=== PATIENT | female | born 1960 | race American Indian/Alaskan Native ===

== ENCOUNTER 2017-07-26 11:56 | Day surgery (SDC) | payer MEDICAID ==
[2017-07-24 10:18] VITALS: BMI 31.6
[2017-07-26 12:32] LABS: BASO # 0.01 K/mm3 (0.0-2.0); BASO % 0.2 % (0.0-3.0); EOS # 0.1 (0.0-0.7); EOS % 1.2 % (1.5-5.0); GRAN # 3.34 (1.4-6.5); GRAN % 55.6 % (50.0-68.0); HEMATOCRIT 33.3 % (36.0-48.0); MEAN CELL VOLUME 88.3 fl (80.0-105.0); MEAN CORPUSCULAR HEMOGLOBIN 27.9 pg (25.0-35.0); MEAN CORPUSCULAR HGB CONC 31.5 g/dl (31.0-37.0); MEAN PLATELET VOLUME 9.6 fl (7.0-11.0); MONO # 0.5 (0.1-0.6); RED CELL DISTRIBUTION WIDTH 21.1 % (11.5-14.5)
[2017-07-26 12:41] LABS: BLOOD UREA NITROGEN 13 mg/dL (7-21); CALCIUM 9.7 mg/dL (8.4-10.5); CARBON DIOXIDE 26 mmol/L (21-33); CHLORIDE 105 mmol/L (98-107); GFR AFRICAN-AMERICAN > 60; GLUCOSE,RANDOM 93 mg/dL (70-110); POTASSIUM 4.2 mmol/L (3.6-5.0); SODIUM 142 mmol/L (132-148)
[2017-07-26 12:45] LABS: INR 1.08 (0.93-1.08); PARTIAL THROMBOPLASTIN TIME 28.7 Seconds (23.7-30.8)
[2017-07-26] MEDS ORDERED: Midazolam 2 MG/2 ML VIAL ONE (14:55)
[2017-07-26] MEDS ORDERED: Oxycodone/Acetaminophen 5/325 mg Tab PO PRN (16:17)
[2017-07-26] MEDS ORDERED: Sodium Chloride 0.45% 1,000 ML IV SCH (16:30)
[2017-07-26] MEDS ORDERED: Oxycodone/Acetaminophen 5/325 mg Tab ONE (16:38)
[2017-07-26 18:22] VITALS: RESP 20; TEMP 97.7; O2SAT 98
[2017-07-26 18:25] VITALS: BP 113/71; PULSE 88
--- NOTE | 2017-07-26 19:27 | CT ---
PROCEDURE: CT guided bone marrow aspiration and biopsy HISTORY: Monoclonal gammopathy. Evaluate for multiple myeloma. PHYSICIAN(S): Sixto Hartman MD. TECHNIQUE: The relative risks and indications of the procedure were explained to the patient and consent obtained. The patient was placed prone on the CT scanner and preliminary images through the [facility] obtained. Conscious sedation and monitoring were provided throughout the procedure by a nurse. The left posterior superior iliac spine was selected for biopsy. The skin was prepped and draped usual sterile fashion. 1 percent xylocaine was used to anesthetize the skin soft tissues. And on control ome biopsy needle was advanced to the left posterior superior iliac spine and its position confirmed with CT. The needle was advanced through the cortex. Bone marrow aspiration was performed. Next a core biopsy was obtained with on control needle and drill. An excellent specimen was obtained. IMPRESSION: 1. CT-guided bone marrow aspiration and biopsy as described above.
== END 2017-07-26 18:30 | disposition home or self-care (01) ==
LOC: SDS 11:56
PROVIDERS: ATTEND Radiology Vascular & Interventional Radiology
DX: D47.2 Monoclonal gammopathy (principal)
CPT/HCPCS: 36415; 38221; 77012; 80048; 85025; 85610; 85730; 99152; J2250; J2405; J3010; J7030